=== PATIENT | female | born 1940 | race Caucasian/White ===

== ENCOUNTER → 2016-09-05 | Outpatient (CLI) | payer MEDICARE ==
--- NOTE | 2016-09-05 11:20 | MR ---
EXAMINATION TYPE: MR brain wo con DATE OF EXAM: 09/05/2016 10:10 AM COMPARISON: 04/10/2016, 09/04/2015 HISTORY: Arachnoid cyst, F/U T1-weighted sagittal, T2, FLAIR, and diffusion axial, and T2 coronal coronal views of the brain are s ubmitted. There is no evidence of acute ischemia. The ventricles, basal cisterns, and sulci overlying the conv exities are consistent with the patient's age. There is no mass effect. There is a 3.2 x 4.7 x 6.6 cm stable appearing extra-axial fluid filled lesion within the left refractory worker ior cerebral convexity most likely related to large arachnoid cyst. There is mild mass effect upon th e adjacent cortex. Stable prominent may be on the basis of asymmetric atrophy. Chronic subdural hygro ma in the differential. Findings stable. CSF spaces along the frontal lobes are again noted Craniocer vical junction maintained. Sella turcica has a normal appearance. Changes of mild chronic sinusitis noted. IMPRESSION: 1. Stable appearing large arachnoid cyst posterior left cerebral convexity with mild mass effect on the adjacent cortex.
== END | disposition home or self-care (01) ==
LOC: RADMRIMAIN 09:37
PROVIDERS: ATTEND Neurological Surgery
DX: G93.0 Cerebral cysts (principal)
CPT/HCPCS: 70551

== ENCOUNTER → 2016-09-12 | Outpatient (CLI) | payer MEDICARE ==
[2016-09-12 10:21] LABS: Blood Urea Nitrogen 17 mg/dL (7-17); Non-African American GFR(MDRD) >60 (>60 ml/min/1.73 sqM)
--- NOTE | 2016-09-19 11:19 | CT ---
EXAMINATION TYPE: CT angio chest DATE OF EXAM: 09/12/2016 11:05 AM COMPARISON: 08/06/2015 HISTORY: Thoracic aneurysm CT DLP: 799 mGycm Automated exposure control for dose reduction was used. CONTRAST: CTA scan of the thorax is performed with IV Contrast, patient injected with 100 ml mL of Omnipaque 35 0, contrast was optimized for the thoracic aorta. 3-D imaging was performed. . FINDINGS: LUNGS: The lungs are grossly clear, there is no concerning parenchymal mass or nodule identified. T here is no pleural effusion or pneumothorax seen. The tracheobronchial tree is patent. MEDIASTINUM: The ascending thoracic aorta at the level of the main pulmonary artery is 4.0 cm. The ma in pulmonary artery at the bifurcation is 3.0 cm. These appear within measurement error of the prior examination. The descending thoracic aorta appears to taper normally through its visualized course to the level of the diaphragm. Small hiatal hernia may be present. A cyst may be present within the posterior right lobe liver. OTHER: 3-D imaging is reviewed. No aneurysmal dilatation is evident. No dissection is evident. No mediastinal or hilar adenopathy enlarged by CT criteria is evident. Axillary regions are unremarka ble. IMPRESSION: 4.0 CM ASCENDING THORACIC AORTIC ANEURYSM AT THE LEVEL OF THE MAIN PULMONARY ARTERY IS STABLE FROM 20 15.
== END ==
LOC: RADCTMAIN 09:49
PROVIDERS: ATTEND Family Medicine
DX: I71.2 Thoracic aortic aneurysm, without rupture (principal)
CPT/HCPCS: 82565; 84520; 71275; 36415; Q9967

== ENCOUNTER → 2018-10-30 | Outpatient (CLI) | payer MEDICARE ==
--- NOTE | 2018-10-31 09:26 | MM ---
Reason for exam: screening (asymptomatic). Last mammogram was performed 1 year and 3 months ago. History: Patient is postmenopausal and has history of other cancer at age 63. Physical Findings: A clinical breast exam by your physician is recommended on an annual basis and results should be correlated with mammographic findings. MG 3D Screening Mammo W/Cad Bilateral CC and MLO view(s) were taken. Prior study comparison: August 08, 2017, bilateral MG 3d screening mammo w/cad. July 21, 2016, bilateral MG 3d screening mammo w/cad. There are scattered fibroglandular densities. There are benign appearing round vascular calcifications bilaterally. There is no discrete abnormality. ASSESSMENT: Benign, BI-RAD 2 RECOMMENDATION: Routine screening mammogram of both breasts in 1 year.
== END | disposition home or self-care (01) ==
LOC: RADMAMWWP 10:32
PROVIDERS: ATTEND Family Medicine
DX: Z12.31 Encounter for screening mammogram for malignant neoplasm of breast (principal)
CPT/HCPCS: 77063; 77067

== ENCOUNTER → 2019-08-11 | Outpatient (CLI) | payer MEDICARE ==
--- NOTE | 2019-08-11 18:24 | MR ---
EXAMINATION TYPE: MR lumbar spine wo con DATE OF EXAM: 08/11/2019 COMPARISON: None HISTORY: Low back pain CONTRAST: 0 mL intravenous Gadavist. TECHNIQUE: Multiplanar, multisequence images of the lumbar spine were acquired. FINDINGS: L5-S1: Mild disc bulge is present with mild anterior thecal sac contact. No spinal canal stenosis. No foraminal stenosis. L4-L5: No significant disc bulge or disc herniation. No spinal canal stenosis. No foraminal stenosi s. Some facet hypertrophy is present. L3-L4: No significant disc bulge or disc herniation. No spinal canal stenosis. No foraminal stenosi s. Mild facet hypertrophy is present with posterior lateral thecal sac contact L2-L3: No significant disc bulge or disc herniation. No spinal canal stenosis. No foraminal stenosi s. L1-L2: No significant disc bulge or disc herniation. No spinal canal stenosis. No foraminal stenosi s. T12-L1: No significant disc bulge or disc herniation. No spinal canal stenosis. No foraminal stenos is. IMPRESSION: 1. Mild disc bulge with anterior thecal sac contact L5-S1. No stenosis is evident. 2. Mild facet degenerative changes L3-4 through L5-S1.
== END | disposition home or self-care (01) ==
LOC: RADMRIMAIN 12:33
PROVIDERS: ATTEND Psychiatry & Neurology Neurology
DX: M51.87 Other intervertebral disc disorders, lumbosacral region (principal); M47.816 Spondylosis without myelopathy or radiculopathy, lumbar region; M47.817 Spondylosis without myelopathy or radiculopathy, lumbosacral region
CPT/HCPCS: 72148

== ENCOUNTER → 2020-07-02 | Outpatient (CLI) | payer MEDICARE ==
--- NOTE | 2020-07-02 15:28 | CT ---
EXAMINATION TYPE: CT angio chest DATE OF EXAM: 07/02/2020 9:21 AM COMPARISON: CTA chest 09/12/2016 HISTORY: pulmonary embolism CT DLP: 396 mGycm Automated exposure control for dose reduction was used. CONTRAST: CTA scan of the thorax is performed with IV Contrast, patient injected with 100 mL of Isovue 370, pul monary embolism protocol. MIP images are created and reviewed. FINDINGS: LUNGS: The lungs are grossly clear, there is no concerning parenchymal mass or nodule identified. T here is no pleural effusion or pneumothorax seen. The tracheobronchial tree is patent. MEDIASTINUM: There is satisfactory enhancement of the pulmonary artery and its branches, there is no CT evidence for pulmonary embolism. There is a linear hypodensity of the left lower lobe segmental a rtery (4:58) which demonstrates a linear artifact crossing both the artery and adjacent vein on coron al imaging (10:102), which is not felt to represent pulmonary embolus. There are no greater than 1 cm hilar or mediastinal lymph nodes. No pericardial effusion is seen. Cardiomegaly. There is ascendin g thoracic aortic ectasia measures up to 4.1 cm, not significantly changed. Enlargement of the main p ulmonary arterial trunk up to 3.2 cm. OTHER: Small hiatal hernia. IMPRESSION: 1. NO PULMONARY EMBOLISM. 2. REDEMONSTRATED ASCENDING THORACIC AORTIC ECTASIA UP TO 4.1 CM. 3. ENLARGED MAIN PULMONARY ARTERIAL TRUNK MAY REPRESENT PULMONARY ARTERIAL HYPERTENSION.
== END | disposition home or self-care (01) ==
LOC: RADCTMAIN 08:02
PROVIDERS: ATTEND Internal Medicine Critical Care Medicine
DX: I77.810 Thoracic aortic ectasia (principal); I26.99 Other pulmonary embolism without acute cor pulmonale; Z88.0 Allergy status to penicillin; Z88.5 Allergy status to narcotic agent; Z88.8 Allergy status to other drugs, medicaments and biological substances
CPT/HCPCS: 82565; 84520; 71275; 36415; Q9967

== ENCOUNTER → 2021-08-05 | Outpatient (CLI) | payer MEDICARE ==
--- NOTE | 2021-08-05 16:49 | US ---
EXAMINATION TYPE: US duplex aorta DATE OF EXAM: 08/05/2021 COMPARISON: CT Chest CLINICAL HISTORY: I71.4 AAA. AAA EXAM MEASUREMENTS: Abdominal Aorta: Proximal: 1.8 x 2.1 cm Mid: 1.8 x 1.8 cm Distal: 1.4 x 1.6 cm Bifurcation: NANCY: 1.2 x 1.2 cm DELTA: 1.1 x 1.2 cm No evidence of AAA, atherosclerotic changes IMPRESSION: No evidence for AAA
== END | disposition home or self-care (01) ==
LOC: RADUSWWP 15:42
PROVIDERS: ATTEND Family Medicine
DX: Z03.89 Encounter for observation for other suspected diseases and conditions ruled out (principal)
CPT/HCPCS: 93979

== ENCOUNTER → 2021-08-08 | Outpatient (CLI) | payer MEDICARE ==
--- NOTE | 2021-08-08 08:58 | CT ---
EXAMINATION TYPE: CT soft tissue neck w con DATE OF EXAM: 08/08/2021 HISTORY: Left-sided neck mass. COMPARISON: CT cervical spine September 30, 2015. MRI brain September 05, 2016 CT DLP: 365.3 mGycm. Automated Exposure Control for Dose Reduction was Utilized. TECHNIQUE: CT scan of the neck is performed with IV Contrast, patient injected with 50 mL of Isovue 370, axial images are obtained, coronal and sagittal reformatted images are reviewed. FINDINGS: Airway: No gross abnormality seen. Parotid/submandibular glands: No gross abnormality seen. Carotid/Vascular Structures: Moderate calcified plaque bilateral carotid bulb level right greater cherri n left extends into internal carotid arteries without significant stenosis. There is dominant left ve rtebral artery. Both vertebral arteries are patent to basilar junction. Osseous Structures: Slight grade 1 retrolisthesis C4 on C5. Mild disc space narrowing C4/C5. Other: There are prominent but subcentimeter lymph nodes scattered throughout the neck bilaterally. T hey are slightly more prominent in size from 2016 study Corresponding to palpable abnormality along t he inferior aspect of the left submandibular gland there is a slightly enlarged 1.8 x 1.1 cm lymph no de. This appears to retain fatty hilum. There is some concentric cortical wall thickening. There was prominent lymph node at this level in 2016 but increased in size. No surrounding inflammatory change. No additional greater than 1.0 cm in short axis lymph nodes clearly seen. Partial visualization of left parietal arachnoid cyst axial image 78 with local mass effect correlate s with 2017 MRI Nasal septum deviated to right of midline. IMPRESSION: Prominent but subcentimeter lymph nodes throughout the neck bilaterally are more prominen t or slightly larger from 2016 CT. Largest corresponds to the palpable abnormality is slightly enlarg ed in size but appears to retain central fatty hilum. Some concentric cortical thickening is present. Findings are nonspecific. No obvious enhancing mucosal mass or definite pathologic adenopathy. At [facility] short-term imaging follow-up in 2-3 months time is advised to reassess.
--- NOTE | 2021-08-08 09:07 | CT ---
EXAMINATION TYPE: CT angio chest DATE OF EXAM: 08/08/2021 COMPARISON: CTA chest July 02, 2020 and older study 2017 HISTORY: Thoracic Aortic Aneurysm CT DLP: 1089.0 mGycm. Automated Exposure Control for Dose Reduction was Utilized. CONTRAST: CTA scan of the thorax is performed without and with IV Contrast, patient injected with 72 mL of Isov ue 370, aneurysm protocol. . 3D reconstructed images are created on an independent workstation and re viewed. FINDINGS: LUNGS: Mild underlying emphysematous changes felt present. Mild bibasilar linear scarring and/or atel ectasis. No suspicious nodules or masses. There is no pleural effusion or pneumothorax seen. The t racheobronchial tree is patent. MEDIASTINUM: There is satisfactory enhancement of the central pulmonary arteries. Ascending aorta aris sures up to 4.0 cm in diameter. The aorta measures 3.9 cm diameter at aortic root coronal image 42. N o significant change from prior. Mild calcified plaque aortic arch. Normal three-vessel origin. Poor bolus opacification due to timing. There are no new greater than 1 cm hilar or mediastinal lymph nod es. Persistent cardiomegaly with moderate biventricular dilatation and mild to moderate biatrial dila tation. No significant pericardial effusion is seen. OTHER: Prominent but subcentimeter right axillary lymph nodes redemonstrated. Stable small sized hiat al hernia. Stable 1.6 cm thin-walled cyst posterior right hepatic lobe axial image 43. Scattered punc dahl hypodense lesions too small to further characterize redemonstrated. Splenomegaly redemonstrated at 17.0 cm long axis axial image 46. Underlying scoliosis again seen. IMPRESSION: Stable 4.0 cm ascending aortic aneurysm.
== END | disposition home or self-care (01) ==
LOC: RADCTMAIN 06:25
PROVIDERS: ATTEND Family Medicine
DX: I71.2 Thoracic aortic aneurysm, without rupture (principal); R22.1 Localized swelling, mass and lump, neck
CPT/HCPCS: 82565; 84520; 70491; 71275; 36415; Q9967

== ENCOUNTER → 2021-10-27 | Outpatient (CLI) | payer MEDICARE ==
--- NOTE | 2021-10-28 13:22 | MM ---
Reason for exam: screening (asymptomatic). Last mammogram was performed 3 years ago. History: Patient is postmenopausal and has history of other cancer at age 51. Physical Findings: A clinical breast exam by your physician is recommended on an annual basis and results should be correlated with mammographic findings. MG 3D Screening Mammo W/Cad Bilateral CC and MLO view(s) were taken. Prior study comparison: October 30, 2018, bilateral MG 3d screening mammo w/cad. August 08, 2017, bilateral MG 3d screening mammo w/cad. There are scattered fibroglandular densities. There is no discrete abnormality. No significant changes when compared with prior studies. ASSESSMENT: Negative, BI-RAD 1 RECOMMENDATION: Routine screening mammogram of both breasts in 1 year.
== END | disposition home or self-care (01) ==
LOC: RADMAMWWP 10:52
PROVIDERS: ATTEND Nurse Practitioner Adult Health
DX: Z12.31 Encounter for screening mammogram for malignant neoplasm of breast (principal); Z78.0 Asymptomatic menopausal state
CPT/HCPCS: 77063; 77067

== ENCOUNTER 2021-12-14 07:43 | Day surgery (SDC) | payer MEDICARE ==
[2021-12-12 15:28] VITALS: BMI 38.3
[2021-12-14] MEDS ORDERED: LIDOCAINE 1% (10MG/ML) FOR IV START INTRADERMA PRN (07:55)
[2021-12-14 08:12] VITALS: TEMP 97.4
[2021-12-14] MEDS: LACTATED RINGERS 1,000 ML IV SCH ×2 (08:13→08:57)
[2021-12-14] MEDS ORDERED: LIDOCAINE 1% INJ 10MG/ML (20 ML MDV) ONE (08:57)
[2021-12-14] MEDS ORDERED: PROPOFOL 10 MG/ML 20 ML VIAL IV ONE (08:57)
--- NOTE | 2021-12-14 09:15 | P.PCN ---
Date of Procedure: 12/14/21 Procedure(s) Performed: BRIEF HISTORY: Patient is a a 11-year-old pleasant white female scheduled for an elective colonoscopy as a part of evaluation of altered bowel movements for the last 6 months duration. She is been having diarrhea followed by constipation with bowel movements anywhere from 5-6 a day which are loose to watery in consistency but no rectal bleeding. Her last colonoscopy was 10 years ago. PROCEDURE PERFORMED: Colonoscopy with biopsy. PREOPERATIVE DIAGNOSIS: Altered bowel movements of 6 months duration. IV sedation per Anesthesia. PROCEDURE: After informed consent was obtained, the patient, was brought into the endoscopy unit. IV sedation was administered by Anesthesia under continuous monitoring. Digital rectal examination was normal. Initially the Olympus CF-160 flexible video colonoscope was then inserted in the rectum, gradually advanced into the cecum without any difficulty. Careful examination was performed as the scope was gradually being withdrawn. Ileocecal valve and the appendiceal orifice were visualized and appeared normal. Prep was excellent. Mucosa of the cecum, at 3 mm polyp that was removed by cold biopsy. Rest of the ascending colon, transverse colon, descending colon, sigmoid colon, and rectum appeared normal. Biopsies were done from ascending and descending colon to rule out microscopic/collagenous colitis. Scattered sigmoid diverticulosis seen. Retroflexion was performed in the rectum and no lesions were seen. The patient tolerated the procedure well. IMPRESSION: 5 mm polyp status post cold biopsy scattered left sided diverticulosis Small internal hemorrhoids RECOMMENDATIONS: Findings of this examination were discussed with the patientas well as her family. She was advised to follow with the biopsy results. In the meantime I suggested that she start him on fiber supplements and use [id number] Imodium as.].
[2021-12-14 09:19] VITALS: RESP 16
[2021-12-14 09:32] VITALS: BP 117/74; PULSE 66
== END 2021-12-14 10:28 | disposition home or self-care (01) ==
LOC: ORWHC2ENDO 07:43
PROVIDERS: ATTEND Internal Medicine Gastroenterology
DX: Z12.11 Encounter for screening for malignant neoplasm of colon (principal); K64.8 Other hemorrhoids; K57.90 Diverticulosis of intestine, part unspecified, without perforation or abscess without bleeding
CPT/HCPCS: 45380; 88305; J2001; J2704

== ENCOUNTER → 2022-05-15 | Outpatient (CLI) | payer MEDICARE ==
--- NOTE | 2022-05-15 09:39 | US ---
EXAMINATION TYPE: US thyroid st tissue head/neck DATE OF EXAM: 05/15/2022 COMPARISON: CT neck 08/08/2021. CLINICAL HISTORY: E03.8 HYPOTHYROIDISM, R59.9 LYMPH NODE ENLARGEMENT. GLAND SIZE: Right Lobe: 4.6 x 1.2 x 1.1 cm Overall Parenchyma: heterogenous Left Lobe: 3.9 x 1.1 x 0.9 cm Overall Parenchyma: heterogeneous Isthmus Thickness: 0.2 cm NODULES RIGHT: # of nodules measured on right: 0 LEFT: # of nodules measured on left: 0 ISTHMUS: # of nodules measured in the isthmus: 0 Bilateral neck scanned, prominent lymph nodes seen bilaterally with central fatty hilum, morphologica lly benign. IMPRESSION: 1. No concerning thyroid nodules. 2. Diffusely heterogenous thyroid gland. 3. Prominent morphologically benign bilateral cervical lymph nodes.
== END | disposition home or self-care (01) ==
LOC: RADUSWWP 08:49
PROVIDERS: ATTEND Internal Medicine Endocrinology, Diabetes & Metabolism
DX: E03.8 Other specified hypothyroidism (principal); R59.0 Localized enlarged lymph nodes
CPT/HCPCS: 76536; 84443

== ENCOUNTER → 2023-03-13 | Outpatient (CLI) | payer MEDICARE ==
[2023-03-13 08:27] LABS: African American GFR (CKD) >90 (>60 ml/min/1.73 sqM); Blood Urea Nitrogen 13 mg/dL (7-17); Non-African American GFR(CKD) 78 (>60 ml/min/1.73 sqM)
--- NOTE | 2023-03-13 11:49 | CT ---
EXAMINATION TYPE: CT chest w con DATE OF EXAM: 03/13/2023 COMPARISON: 08/08/2021 HISTORY: 82-year-old female I27.20, Thoracic aortic aneurysm. TECHNIQUE: Contiguous axial scanning of the chest after the administration of 100ml mL of Isovue 300. Coronal/sagittal reconstructions performed. CT DLP: 425.4mGycm. Automatic exposure control utilized for a dose reduction. FINDINGS: Heart borderline enlarged without pericardial effusion. LAD coronary artery calcifications are presen t. Aortic root aneurysmal at 4.2 cm, unchanged. Ascending aorta mildly aneurysmal at 4.0 cm, unchanged. Bovine configuration to the aortic arch with mild atherosclerotic arch calcifications. Large caliber to the main right and left pulmonary arteries measuring up to 2.9 cm suggesting underly ing pulmonary hypertension. No thoracic lymphadenopathy by CT size criteria. Mild emphysematous change. Strandy scarring and atelectasis at the lung bases. No consolidation or pl eural effusion. Small hiatal hernia. Splenomegaly at 16.7 cm, unchanged. Hilar splenule. Posterior right hepatic lobe cyst redemonstrated. Bones: [facility] lower thoracic spine. Accentuated thoracic kyphosis. IMPRESSION: 1. Similar aneurysmal aortic root and ascending aorta at 4.2 and 4.0 cm, respectively. 2. Borderline cardiomegaly with LAD coronary artery calcifications. 3. COPD with mild emphysema and strandy scarring/atelectasis at the lung bases. 4. Pulmonary arterial hypertension. 5. Small hiatal hernia and similar splenomegaly at 16.7 cm.
== END | disposition home or self-care (01) ==
LOC: RADCTMAIN 07:46
PROVIDERS: ATTEND Internal Medicine Critical Care Medicine
DX: I71.21 Aneurysm of the ascending aorta, without rupture (principal); I25.10 Atherosclerotic heart disease of native coronary artery without angina pectoris; I27.20 Pulmonary hypertension, unspecified; K44.9 Diaphragmatic hernia without obstruction or gangrene; R16.1 Splenomegaly, not elsewhere classified; J43.9 Emphysema, unspecified
CPT/HCPCS: 82565; 84520; 71260; 36415; Q9967